=== PATIENT | male | born 1990 | race African-American/Black ===

== ENCOUNTER 2018-05-30 14:02 | Emergency (ER) | payer OTHER, MEDICAID ==
[~2018-05-30] VITALS: Ht 170.2 cm; Wt 81.6 kg
[2018-05-30] MEDS ORDERED: Isovue-300 100ml vial INJ PRN (14:45)
[2018-05-30] MEDS ORDERED: Ketorolac 30mg Inj IV ONE (14:45)
[2018-05-30] MEDS ORDERED: Morphine Sulfate 4mg/ml Inj (IV/IM USE ONLY) IVP ONE (14:45)
[2018-05-30 14:48] LABS: HEMATOCRIT 49.3 % (42.0-52.0); HEMOGLOBIN 16.8 G/DL (14.2-18.0); MEAN CORPUSCULAR VOLUME 91 FL (80-99); PLATELET COUNT 209 K/UL (150-450); RED CELL DISTRIBUTION WIDTH 13.2 % (11.6-14.8); WHITE BLOOD COUNT 18.2 K/UL (4.8-10.8)
[2018-05-30 14:56] LABS: APPEARANCE,URINE CLEAR; BILIRUBIN, URINE NEGATIVE (NEGATIVE); COLOR,URINE PALE YELLOW; GLUCOSE, URINE (UA) NEGATIVE (NEGATIVE); KETONES,URINE NEGATIVE (NEGATIVE); LEUKOCYTE ESTERASE ,URINE NEGATIVE (NEGATIVE); NITRITE,URINE NEGATIVE (NEGATIVE); PH,URINE 6 (4.5-8.0); PROTEIN,URINE NEGATIVE (NEGATIVE); UROBILINOGEN,URINE NORMAL MG/DL (0.0-1.0)
[2018-05-30 15:01] LABS: ANION GAP 10 mmol/L (5-15); BLOOD UREA NITROGEN 17 mg/dL (7-18); CALCIUM 9.3 MG/DL (8.5-10.1); CARBON DIOXIDE 26 MMOL/L (21-32); CHLORIDE 102 MMOL/L (98-107); CREATININE 1.3 MG/DL (0.55-1.30); POTASSIUM 4.1 MMOL/L (3.5-5.1); SODIUM 138 MMOL/L (136-145)
[2018-05-30 15:05] VITALS: BP 131/82
[2018-05-30 15:05] LABS: ALANINE AMINOTRANSFERASE 55 U/L (12-78); ALBUMIN 4.2 G/DL (3.4-5.0); ALKALINE PHOSPHATASE 118 U/L (46-116); ASPARTATE AMINO TRANSFERASE 25 U/L (15-37); BILIRUBIN,TOTAL 0.4 MG/DL (0.2-1.0)
--- NOTE | 2018-05-30 15:07 | NUR ---
ED Nurse Note:pt. came with lower pelvic pain for 2 days ,no nausea vomiting or diahrrea reported, blood and urine sent to labs, VSS, given IV fluids and meds
--- NOTE | 2018-05-30 15:47 | Diagnostic Imaging Report ---
History: ABD PAIN Exam: CT ABDOMEN + PELVIS With Contrast Technique more: CTDI is 14.56 mGy and DLP is 750 mGy-cm. Technique more: One or more of the following dose reduction techniques were used: automated exposure control, adjustment of the mA and/or kV according to patient size, use of iterative reconstruction technique. Comparison: None available FINDINGS: Focal abnormal short segment of sigmoid colon with appearance of wall thickening, possible edema and adjacent pericolonic stranding, edema. There is possibly a small associated diverticulum for example axial 70, coronal 27 and sagittal 42 which may represent acute diverticulitis with a focal colitis or underlying infiltrative lesion not excluded. May consider flexible sigmoidoscopy when symptoms have resolved as warranted. A couple of diverticular suggested along the transverse colon for example coronal 10 and 13. Trace free fluid. Mildly prominent proximal small bowel left upper quadrant with associated fluid levels may represent degree of focal ileus. Abdominal solid organs and abdominal aorta appear within limits. Suggestion of a tiny calcified equivocal gallstone nondistended, noninflamed gallbladder axial 25. Normal caliber appendix without secondary signs. IMPRESSION: Focal abnormal short segment of sigmoid colon with appearance of wall thickening, possible edema and adjacent pericolonic stranding, edema. There is possibly a small associated diverticulum for example axial 70, coronal 27 and sagittal 42 which may represent acute diverticulitis with a focal colitis or underlying infiltrative lesion not excluded. May consider flexible sigmoidoscopy when symptoms have resolved as warranted. A couple of diverticular suggested along the transverse colon for example coronal 10 and 13. Trace free fluid. Mildly prominent proximal small bowel left upper quadrant with associated fluid levels may represent degree of focal ileus.
[2018-05-30] MEDS ORDERED: Ciprofloxacin 500mg tab ORAL ONE (16:15)
[2018-05-30] MEDS ORDERED: metroNIDAZOLE 500mg tab ORAL ONE (16:15)
[2018-05-30] MEDS ORDERED: IBUPROFEN600 MG ORAL (16:39)
[2018-05-30] MEDS ORDERED: NORCO 5-325 TA1 EACH ORAL (16:39)
[2018-05-30] MEDS ORDERED: ONDANSETRON ODT4 MG BC (16:39)
[2018-05-30] MEDS ORDERED: METRONIDAZOLE500 MG ORAL (16:39)
[2018-05-30] MEDS ORDERED: CIPROFLOXACIN500 M2 ORAL (16:39)
[2018-05-30 17:00] VITALS: BP 128/80
[2018-05-30 17:14] VITALS: BP 128/80
--- NOTE | 2018-05-30 17:15 | NUR ---
ED Nurse Note: Patient cleared for discharge per ERMD. NAD. VSS. Patient given prescriptions and discharge instructions; verbalized understanding. ID band removed. Patient ambulated steady with all personal belongings.
--- NOTE | 2018-05-30 18:40 | Emergency Room Report ---
History of Present Illness General Chief Complaint: Abdominal Pain Source: Patient Present Illness HPI 28-year-old male presents ED for evaluation. Complaining of abdominal pain 2 days.The lower abdomen, sharp, 10 out of 10, nonradiating. Denies fevers, notes chills. Denies nausea or vomiting. Denies any diarrhea. No other aggravating relieving factors. Denies any other associated symptoms Allergies: Coded Allergies: No Known Allergies (Unverified , 05/30/18) Patient History Past Medical History: none Past Surgical History: none Pertinent Family History: none Social History: Denies: smoking, alcohol use, drug use Immunizations: UTD Reviewed Nursing Documentation: PMH: Agreed; PSxH: Agreed Nursing Documentation-PMH Past Medical History: No Stated History Review of Systems All Other Systems: negative except mentioned in HPI Physical Exam Vital Signs Date Time Temp Pulse Resp B/P (MAP) Pulse Ox O2 Delivery O2 Flow Rate FiO2 05/30/18 14:10 99.3 103 18 131/82 97 Room Air Sp02 EP Interpretation: reviewed, normal General Appearance: alert, GCS 15, non-toxic, mild distress Head: normocephalic, atraumatic Eyes: bilateral eye normal inspection, bilateral eye PERRL ENT: hearing grossly normal, normal pharynx, no angioedema, normal voice Neck: full range of motion, supple/symm/no masses Respiratory: chest non-tender, lungs clear, normal breath sounds, speaking full sentences Cardiovascular #1: regular rate, rhythm, no edema Cardiovascular #2: 2+ carotid (R), 2+ carotid (L), 2+ radial (R), 2+ radial (L) , 2+ dorsalis pedis (R), 2+ dorsalis pedis (L) Gastrointestinal: normal bowel sounds, soft, non-distended, no guarding, no rebound, tenderness Rectal: deferred Genitourinary: normal inspection, no CVA tenderness Musculoskeletal: back normal, gait/station normal, normal range of motion, non- tender Neurologic: alert, oriented x3, responsive, motor strength/tone normal, sensory intact, speech normal Psychiatric: judgement/insight normal, memory normal, mood/affect normal, no suicidal/homicidal ideation Reflexes: 3+ bicep (R), 3+ bicep (L), 3+ tricep (R), 3+ tricep (L), 3+ knee (R) , 3+ knee (L) Skin: normal color, no rash, warm/dry, well hydrated Lymphatic: no adenopathy Medical Decision Making Diagnostic Impression: Primary Impression: Diverticulitis ER Course Hospital Course 28-year-old M presents to ED with lower abdominal pain Differential diagnoses include: appendicitis, diverticulitis, SBO, gastroenteritis Clinical course Patient placed on stretcher. secured entrance monitor. After initial history and physical I ordered labs, IV fluids, UA, pain medication and CT scan Labs - noted leukocytosis, Hb/Hct stable. electrolytes ok. CT abdomen and pelvis - diverticulitis, no abscess, no perforation Discussed findings with patient. Patient afebrile, nontoxic appearing. No vomiting. Discussed option for admission but patient prefers be discharged at this time. Cipro and Flagyl here. We'll discharge with pain meds, antibiotics. Safe for discharge close outpatient follow-up. Does not have a PMD. We'll provide referrals I feel this is a highly complex case requiring extensive working including EKG/ Rhythm strip, Xray/CT/US, Blood/urine lab work, repeat exams while in ED, and administration of strong opiates/narcotics for pain control, admission to hospital or close patient follow up. Diagnosis - divertculitis stable and discharged to home with prescription for Cipro and Flagyl, [place], Motrin, Zofran. Followup with PMD. Return to ED if symptoms recur or worsen Labs Test 05/30/18 14:23 White Blood Count 18.2 K/UL (4.8-10.8) Red Blood Count 5.40 M/UL (4.70-6.10) Hemoglobin 16.8 G/DL (14.2-18.0) Hematocrit 49.3 % (42.0-52.0) Mean Corpuscular Volume 91 FL (80-99) Mean Corpuscular Hemoglobin 31.2 PG (27.0-31.0) Mean Corpuscular Hemoglobin Concent 34.1 G/DL (32.0-36.0) Red Cell Distribution Width 13.2 % (11.6-14.8) Platelet Count 209 K/UL (150-450) Mean Platelet Volume 9.3 FL (6.5-10.1) Neutrophils (%) (Auto) % (45.0-75.0) Lymphocytes (%) (Auto) % (20.0-45.0) Monocytes (%) (Auto) % (1.0-10.0) Eosinophils (%) (Auto) % (0.0-3.0) Basophils (%) (Auto) % (0.0-2.0) Differential Total Cells Counted 100 Neutrophils % (Manual) 79 % (45-75) Lymphocytes % (Manual) 12 % (20-45) Monocytes % (Manual) 7 % (1-10) Eosinophils % (Manual) 0 % (0-3) Basophils % (Manual) 1 % (0-2) Band Neutrophils 1 % (0-8) Smudge Cells Occasional Platelet Estimate Adequate Platelet Morphology Normal Red Blood Cell Morphology Normal Urine Color Pale yellow Urine Appearance Clear Urine pH 6 (4.5-8.0) Urine Specific [place] 1.015 (1.005-1.035) Urine Protein Negative (NEGATIVE) Urine Glucose (UA) Negative (NEGATIVE) Urine Ketones Negative (NEGATIVE) Urine Blood 2+ (NEGATIVE) Urine Nitrite Negative (NEGATIVE) Urine Bilirubin Negative (NEGATIVE) Urine Urobilinogen Normal MG/DL (0.0-1.0) Urine Leukocyte Esterase Negative (NEGATIVE) Urine RBC 10-15 /HPF (0 - 0) Urine WBC 0-2 /HPF (0 - 0) Urine Squamous Epithelial Cells Occasional /LPF Urine Bacteria Few /HPF (NONE) Sodium Level 138 MMOL/L (136-145) Potassium Level 4.1 MMOL/L (3.5-5.1) Chloride Level 102 MMOL/L (98-107) Carbon Dioxide Level 26 MMOL/L (21-32) Anion Gap 10 mmol/L (5-15) Blood Urea Nitrogen 17 mg/dL (7-18) Creatinine 1.3 MG/DL (0.55-1.30) Estimat Glomerular Filtration Rate > 60 mL/min (>60) Glucose Level 103 MG/DL (74-106) Calcium Level 9.3 MG/DL (8.5-10.1) Total Bilirubin 0.4 MG/DL (0.2-1.0) Aspartate Amino Transf (AST/SGOT) 25 U/L (15-37) Alanine Aminotransferase (ALT/SGPT) 55 U/L (12-78) Alkaline Phosphatase 118 U/L (46-116) Total Protein 8.6 G/DL (6.4-8.2) Albumin 4.2 G/DL (3.4-5.0) Globulin 4.4 g/dL Albumin/Globulin Ratio 1.0 (1.0-2.7) Lipase 90 U/L (73-393) CT/MRI/US Diagnostic Results CT/MRI/US Diagnostic Results : Imaging Test Ordered: CT A/P Impression Focal abnormal short segment of sigmoid colon with appearance of wall thickening, possible edema and adjacent pericolonic stranding, edema. There is possibly a small associated diverticulum for example axial 70, coronal 27 and sagittal 42 which may represent acute diverticulitis with a focal colitis or underlying infiltrative lesion not excluded. May consider flexible sigmoidoscopy when symptoms have resolved as warranted. A couple of diverticular suggested along the transverse colon for example coronal 10 and 13. Last Vital Signs Date Time Temp Pulse Resp B/P (MAP) Pulse Ox O2 Delivery O2 Flow Rate FiO2 05/30/18 17:14 99.0 90 18 128/80 99 Room Air Status: improved Disposition: HOME, SELF-CARE Condition: Stable Scripts Ondansetron Odt* (ZOFRAN ODT*) 4 Mg Tab.rapdis 4 MG BC EVERY 6 HOURS PRN for Nausea & Vomiting, #10 TAB 0 Refills Prov: Octavio Palencia MD 05/30/18 Metronidazole* (FLAGYL*) 500 Mg Tablet 500 MG ORAL THREE TIMES A DAY, #21 TAB Prov: Octavio Palencia MD 05/30/18 Ciprofloxacin Hcl* (CIPROFLOXACIN HCL*) 500 Mg Tablet 500 MG ORAL Q12H, #14 TAB 0 Refills Prov: Octavio Palencia MD 05/30/18 Ibuprofen* (MOTRIN*) 600 Mg Tablet 600 MG ORAL Q8H PRN for For Pain, #30 TAB 0 Refills Prov: Octavio Palencia MD 05/30/18 Hydrocodone Bit/Acetaminophen 5-325* (NORCO 5-325*) 1 Each Tablet 1 TAB ORAL Q6H PRN for For Pain, #10 TAB 0 Refills Prov: Octavio Palencia MD 05/30/18 Referrals: NOT CHOSEN IPA/,REFERRING (PCP) Karma [facility] Patient Instructions: Diverticulitis, [id number] Octavio Palencia MD May 30, 2018 18:40
== END 2018-05-30 17:15 | disposition home or self-care (01) ==
LOC: EMR 14:38
DX: K57.32 Diverticulitis of large intestine without perforation or abscess without bleeding (principal)
CPT/HCPCS: 36415; 74177; 80053; 81003; 83690; 85007; 85025; 96374; 96375; 99284; J1885; J2270; J7040; Q9967